=== PATIENT | male | born 1965 | race Caucasian/White ===

== ENCOUNTER 2017-11-21 20:45 | Observation (INO) | payer BC, OTHER ==
[~2017-11-21] VITALS: Ht 180.3 cm; Wt 85.3 kg
[~2017-11-21 20:45] MED LIST: TRAM50TA2 PO; TRM50T PO; ZOLP10TA PO
[2017-11-21] MEDS ORDERED: IBUPROFEN 800 MG (MOTRIN) TAB PO ONE (20:58)
[2017-11-21] MEDS ORDERED: NS IV 1000 ML 1,000 ML ONE (20:58)
[2017-11-21] MEDS ORDERED: NS IV 1000 ML 1,000 ML IV ONE (20:59)
[2017-11-21 21:06] LABS: BASOPHILS % (AUTO) 0 % (0-10); EOSINOPHILS % (AUTO) 0 % (0-10); HEMATOCRIT 41 % (40-54); LYMPHOCYTES # (AUTO) 0.7 X 10^3 (1.0-4.0); LYMPHOCYTES % (AUTO) 5 % (12-44); MEAN CORPUSCULAR HEMOGLOBIN 33 PG (25-34); MEAN CORPUSCULAR HGB CONC 34 G/DL (32-36); MEAN CORPUSCULAR VOLUME 96 FL (80-99); MEAN PLATELET VOLUME 8.7 FL (7.4-10.4); MONOCYTES # (AUTO) 0.8 X 10^3 (0.0-1.0); MONOCYTES % (AUTO) 5 % (0-12); NEUTROPHILS # (AUTO) 14.6 X 10^3 (1.8-7.8); NEUTROPHILS % (AUTO) 90 % (42-75); PLATELET COUNT 256 10^3/uL (130-400); RED BLOOD COUNT 4.26 10^6/uL (4.35-5.85); RED CELL DISTRIBUTION WIDTH 12.1 % (10.0-14.5); WHITE BLOOD COUNT 16.2 10^3/uL (4.3-11.0)
[2017-11-21 21:12] LABS: INR 0.9 (0.8-1.4); PROTHROMBIN TIME PATIENT 12.3 SEC (12.2-14.7)
--- NOTE | 2017-11-21 21:13 | ED Cough/URI ---
General Chief Complaint: Fever-Adult/Adol Stated Complaint: SOB Nursing Triage Note: PATIENT STATES THAT YESTERDAY HE STARTED HAVING FEVER AND CHILLS AND SHORTNESS OF BREATH. HE FEELS DEHYDRATED. HE IS NOT EATING. HE IS ABLE TO KEEP LIQUIDS DOWN. SORE THROAT STARTED THIS EVENING. HE HAS BODY ACHES AND SAYS IT IS "HURTING MY SCOLIOSIS." Source: patient Exam Limitations: no limitations History of Present Illness Date Seen by Provider: Nov 21, 2017 Time Seen by Provider: 21:11 Initial Comments To ER By his with reports of shortness of breath. He states that yesterday he began to feel somewhat poorly but symptoms were very vague. He didn't think much of it and went on about his day. Today at noon he had a rather abrupt onset of high fever, and severe body aches, some shortness of breath. He denies sneezing, denies cough. He does report a sore throat. is currently being treated for strep throat. He took Tylenol 2-3 hours before coming to the emergency room Timing/Duration: constant Severity/Quality: moderate Associated Symptoms: fever/chills, muscle aches, shortness of breath, sore throat Allergies and Home Medications Allergies Coded Allergies: No Known Drug Allergies (Unverified , 01/17/11) Constitutional: see HPI, chills EENTM: see HPI, throat pain Respiratory: see HPI, short of breath Cardiovascular: no symptoms reported, No chest pain Genitourinary: no symptoms reported Musculoskeletal: see HPI, back pain, muscle pain Skin: no symptoms reported Psychiatric/Neurological: See HPI, Headache Hematologic/Lymphatic: No Symptoms Reported Past Tqogkph-Xltqfu-Zohcef Hx Patient Social History Recent Foreign Travel: No Contact w/Someone Who Travel: No Recent Infectious Disease Expo: No Recent Hopitalizations: No Reproductive System Hx Reproductive Disorders: No Sexually Transmitted Disease: No Physical Exam Vital Signs Vital Signs - First Documented 11/21/17 20:59 Temp 103.5 Pulse 132 Resp 18 B/P (MAP) 142/115 (124) Pulse Ox 100 O2 Delivery Room Air Capillary Refill : Less Than 3 Seconds General Appearance: WD/WN, no apparent distress, other (heart rate 124 sinus, temperature 103.5. Hypertensive at 142/115.) Eyes: Bilateral Eye Normal Inspection, Bilateral Eye PERRL, Bilateral Eye EOMI HEENT: PERRL/EOMI, normal ENT inspection Neck: non-tender, full range of motion Respiratory: normal breath sounds, no respiratory distress, no accessory muscle use Cardiovascular: no murmur, tachycardia Gastrointestinal: normal bowel sounds, non tender, soft Extremities: normal range of motion, non-tender Neurologic/Psychiatric: alert, normal mood/affect, oriented x 3 Skin: normal color, warm/dry He does have a headache which would be expected with his fever of 103.5 he does not have nuchal rigidity or complaints of neck stiffness. He can flex his chin all the way to his chest without any neck pain Focused Exam Evaluation Lactate Level Laboratory Tests 11/21/17 21:05: Lactic Acid Level 2.22*H Lactic Acid Level Laboratory Tests Test 11/21/17 21:05 Lactic Acid Level 2.22 MMOL/L (0.50-2.00) *H Progress/Results/Core Measures Suspected Sepsis Recent Fever Within 48 Hours: Yes Infection Criteria Present: Suspected New Infection New/Unexplained Altered Menta: No Sepsis Screen: Possible Sepsis Risk Sepsis Diagnosis: SIRS Temperature:103.5 Pulse: 132 Respiratory Rate: 18 Laboratory Tests 11/21/17 20:55: White Blood Count 16.2H Blood Pressure 142 /115 Mean: 124 Laboratory Tests 11/21/17 21:05: Lactic Acid Level 2.22*H Laboratory Tests 11/21/17 20:55: Creatinine 0.96, INR Comment 0.9, Platelet Count 256, Total Bilirubin 0.5 Results/Orders Lab Results Laboratory Tests Test 11/21/17 20:55 11/21/17 21:05 11/21/17 21:15 11/21/17 21:46 Range/Units White Blood Count 16.2 H 4.3-11.0 10^3/uL Red Blood Count 4.26 L 4.35-5.85 10^6/uL Hemoglobin 14.0 13.3-17.7 G/DL Hematocrit 41 40-54 % Mean Corpuscular Volume 96 80-99 FL Mean Corpuscular Hemoglobin 33 25-34 PG Mean Corpuscular Hemoglobin Concent 34 32-36 G/DL Red Cell Distribution Width 12.1 10.0-14.5 % Platelet Count 256 130-400 10^3/uL Mean Platelet Volume 8.7 7.4-10.4 FL Neutrophils (%) (Auto) 90 H 42-75 % Lymphocytes (%) (Auto) 5 L 12-44 % Monocytes (%) (Auto) 5 0-12 % Eosinophils (%) (Auto) 0 0-10 % Basophils (%) (Auto) 0 0-10 % Neutrophils # (Auto) 14.6 H 1.8-7.8 X 10^3 Lymphocytes # (Auto) 0.7 L 1.0-4.0 X 10^3 Monocytes # (Auto) 0.8 0.0-1.0 X 10^3 Eosinophils # (Auto) 0.0 0.0-0.3 10^3/uL Basophils # (Auto) 0.0 0.0-0.1 10^3/uL Neutrophils % (Manual) 75 % Lymphocytes % (Manual) 9 % Monocytes % (Manual) 6 % Eosinophils % (Manual) 1 % Basophils % (Manual) 1 % Band Neutrophils 8 % Blood Morphology Comment NORMAL Prothrombin Time 12.3 12.2-14.7 SEC INR Comment 0.9 0.8-1.4 Activated Partial Thromboplast Time 28 24-35 SEC D-Dimer 0.27 0.00-0.49 UG/ML Sodium Level 135 135-145 MMOL/L Potassium Level 3.9 3.6-5.0 MMOL/L Chloride Level 99 98-107 MMOL/L Carbon Dioxide Level 21 21-32 MMOL/L Anion Gap 15 H 5-14 MMOL/L Blood Urea Nitrogen 16 7-18 MG/DL Creatinine 0.96 0.60-1.30 MG/DL Estimat Glomerular Filtration Rate > 60 BUN/Creatinine Ratio 17 Glucose Level 141 H 70-105 MG/DL Calcium Level 9.6 8.5-10.1 MG/DL Total Bilirubin 0.5 0.1-1.0 MG/DL Aspartate Amino Transf (AST/SGOT) 20 5-34 U/L Alanine Aminotransferase (ALT/SGPT) 20 0-55 U/L Alkaline Phosphatase 61 40-136 U/L Troponin I < 0.30 <0.30 NG/ML Total Protein 8.0 6.4-8.2 GM/DL Albumin 4.7 H 3.2-4.5 GM/DL Monoscreen NEGATIVE NEGATIVE Lactic Acid Level 2.22 *H 0.50-2.00 MMOL/L Urine Color YELLOW Urine Clarity CLEAR Urine pH 7 5-9 Urine Specific Palmer 1.005 L 1.016-1.022 Urine Protein NEGATIVE NEGATIVE Urine Glucose (UA) NEGATIVE NEGATIVE Urine Ketones 1+ H NEGATIVE Urine Nitrite NEGATIVE NEGATIVE Urine Bilirubin NEGATIVE NEGATIVE Urine Urobilinogen NORMAL NORMAL MG/DL Urine Leukocyte Esterase NEGATIVE NEGATIVE Urine RBC (Auto) NEGATIVE NEGATIVE Urine RBC NONE /HPF Urine WBC NONE /HPF Urine Squamous Epithelial Cells RARE /HPF Urine Crystals NONE /LPF Urine Bacteria NONE /HPF Urine Casts NONE /LPF Urine Mucus NEGATIVE /LPF Urine Culture Indicated NO Group A Streptococcus Screen NEGATIVE NEGATIVE Micro Results Microbiology 11/21/17 Influenza Types A,B Antigen (PERRY) - Final, Complete My Orders Orders - GUERDA STUBBS ENVELOPE FOLD OPERATOR Troponin I (11/21/17 21:09) Fibrin Degradation Products (11/21/17 21:09) Ekg Tracing (11/21/17 21:14) Rapid Strep A Screen (11/21/17 21:27) Monotest (11/21/17 21:27) Ns Iv 1000 Ml (Sodium Chloride 0.9%) (11/21/17 21:45) Medications Given in ED Current Medications Medications Dose Ordered Sig/Daniel Route Start Time Stop Time Status Last Admin Dose Admin Ibuprofen 800 mg STK-MED ONCE PO 11/21/17 20:58 11/21/17 21:02 DC 11/21/17 21:06 800 MG Sodium Chloride 1,000 ml @ 0 mls/hr Q0M ONCE IV 11/21/17 20:59 11/21/17 21:01 DC 11/21/17 21:06 0 MLS/HR Vital Signs/I&O Vital Sign - Last 12Hours 11/21/17 11/21/17 20:59 21:24 Temp 103.5 Pulse 132 Resp 18 B/P (MAP) 142/115 (124) Pulse Ox 100 100 O2 Delivery Room Air Room Air Capillary Refill : Less Than 3 Seconds Blood Pressure Mean: 124 Diagnostic Imaging Diagonstic Imaging: Xray Plain Films/CT/US/NM/MRI: chest Comments NAME: JESENIA MAGALLANES [facility] REC#: [id number] PT STATUS: REG ER : 1965 PHYSICIAN: TAMI CHANEL MD ADMIT DATE: 11/21/17/ER Draft Date of Exam:11/21/17 CHEST 1 VIEW, AP/PA ONLY EXAMINATION: Chest radiograph, portable AP view. DATE: 11/21/2017 at 2121 hours. INDICATION: 52-year-old male, fever and chills. Shortness of breath. COMPARISON: None. FINDINGS: Heart size and mediastinal contours are unremarkable. There is no identified pneumothorax. There is no large pleural effusion. There is no identified focal airspace consolidation. There is a midthoracic dextroscoliosis. IMPRESSION: 1. No identified acute cardiopulmonary abnormality. Dictated on workstation # [id number] Dict: 11/21/175 Trans: 11/21/172149 [facility] [id number] Interpreted by: FERNANDO HIDALGO MD Electronically signed by: Departure Communication (Admissions) Time/Spoke to Admitting Phy: 22:03 Communication I did discuss the case with Dr. Johnson who is on-call for [facility]. Discussed my concerns as the patient does meet sepsis criteria given the heart rate of 127, temperature 103.5, white count greater than 12,000 and lactic acid elevated at 2.22. While his symptoms most fitted with influenza his labs are a bit concerning. We would admit the patient, IV hydration, he received 2 L of normal saline in the emergency room, Tylenol and Motrin overnight for fever control, Zosyn and vancomycin for the sepsis criteria with unknown origin of fever and start him on Tamiflu given the symptoms consistent with flu. Dr. Johnson agrees with this plan and will see the patient in the morning. I did relay this plan to the patient and his both of whom are agreeable to admission and being seen in the morning for reevaluation with labs. The will go home and get the patient's evening medications and bring them back to him once he is admitted to his room upstairs. Impression Impression: Primary Impression: Influenza-like illness Additional Impression: Sepsis Disposition: ADMITTED INPATIENT Condition: Stable Admissions Decision to Admit Reason: Admit from ER (General) Decision to Admit/Date: Nov 21, 2017 Time/Decision to Admit Time: 22:05 Departure-Patient Inst. Referrals: [facility] (PCP/Family) Primary Care Physician GUERDA STUBBS APRN Nov 21, 2017 21:13
[2017-11-21 21:25] LABS: BILIRUBIN,URINE NEGATIVE (NEGATIVE); CLARITY,URINE CLEAR; COLOR,URINE YELLOW; GLUCOSE, URINE (UA) NEGATIVE (NEGATIVE); KETONES,URINE 1+ (NEGATIVE); LEUKOCYTE ESTERASE ,URINE NEGATIVE (NEGATIVE); NITRITE,URINE NEGATIVE (NEGATIVE); PH,URINE 7 (5-9); PROTEIN,URINE NEGATIVE (NEGATIVE); UROBILINOGEN,URINE NORMAL (NORMAL)
[2017-11-21 21:25] LABS: BAND NEUTROPHILS 8 %; BASOPHILS % (MANUAL) 1 %; EOSINOPHILS % (MANUAL) 1 %; LYMPHOCYTES % (MANUAL) 9 %; MONOCYTES % (MANUAL) 6 %; NEUTROPHILS % (MANUAL) 75 %
[2017-11-21 21:26] LABS: ALANINE AMINOTRANSFERASE 20 U/L (0-55); ALBUMIN 4.7 GM/DL (3.2-4.5); ALKALINE PHOSPHATASE 61 U/L (40-136); BILIRUBIN,TOTAL 0.5 MG/DL (0.1-1.0); BUN/CREATININE RATIO 17; CALCIUM 9.6 MG/DL (8.5-10.1); CARBON DIOXIDE 21 MMOL/L (21-32); CHLORIDE 99 MMOL/L (98-107); CREATININE SERUM 0.96 MG/DL (0.60-1.30); GFR ESTIMATED > 60; GLUCOSE 141 MG/DL (70-105); POTASSIUM 3.9 MMOL/L (3.6-5.0); RBC MORPH NORMAL; SODIUM 135 MMOL/L (135-145)
[2017-11-21 21:30] LABS: SQUAMOUS EPITHELIAL CELL,UR RARE /HPF
[2017-11-21] MEDS ORDERED: NS IV 1000 ML 1,000 ML IV SCH (21:45)
--- NOTE | 2017-11-21 21:50 | Diagnostic Imaging Report ---
EXAMINATION: Chest radiograph, portable AP view. DATE: 11/21/2017 at 2121 hours. INDICATION: 52-year-old male, fever and chills. Shortness of breath. COMPARISON: None. FINDINGS: Heart size and mediastinal contours are unremarkable. There is no identified pneumothorax. There is no large pleural effusion. There is no identified focal airspace consolidation. There is a midthoracic dextroscoliosis. IMPRESSION: 1. No identified acute cardiopulmonary abnormality. Dictated by: Dictated on workstation # [id number]
[2017-11-21] MEDS ORDERED: PIPERACILLIN SODIUM/TAZOBACTAM 4.5 GM in NS (IVPB) 100 ML IV ONE (22:15)
--- OUTSIDE RECORDS SUMMARY | 2017-11-21 22:18 | XMS REPORT | Continuity of Care Document ---
Author Author [facility] Address Unknown Phone Unavailable Allergies There is no data. Medications There is no data. Problems Date Dx Coded Attending Type Code Diagnosis Diagnosed By 03/04/2014 ALMA NDIAYE APRNA L 790.21 IMPAIRED FASTING GLUCOSE 03/04/2014 MADL SENIOR VISUAL DESIGNER, KAREY L 919.4 INSECT BITE NONVENOMOUS OF OTHER MULTIPLE AND UNSPECIFIED SITES WITHOUT INFECTION 03/04/2014 CLAUDIO NDIAYE APRNNYA L 790.21 IMPAIRED FASTING GLUCOSE 03/04/2014 MADL SENIOR VISUAL DESIGNER, KAREY L 919.4 INSECT BITE NONVENOMOUS OF OTHER MULTIPLE AND UNSPECIFIED SITES WITHOUT INFECTION 03/18/2014 ALMA NDIAYE APRNA L 272.1 PURE HYPERGLYCERIDEMIA Procedures Code [place] [address] ROUTINE VENIPUNCTURE 03/04/2014 20988 GLUCOSE HERIBERTO 2 HOUR 03/04/2014 26233 LYME EIA W/WEST BLOT 03/04/2014 84244 EHRLICHIA ANTIBODY 03/04/2014 97965 TULAREMIA ANTIBODY 03/04/2014 88626 OLMAN MT SPOT FEVER 03/04/2014 Results There is no data. Encounters ACCT No. Visit Date/Time Discharge Status Pt. Type Provider Facility Loc./Unit Complaint [id number] 03/18/2014 11:27:00 03/18/2014 23:59:59 CLS Outpatient KAREY NDIAYE APRN [id number] 03/04/2014 08:51:00 03/04/2014 23:59:59 CLS Outpatient KAREY NDIAYE APRN
--- OUTSIDE RECORDS SUMMARY | 2017-11-21 22:18 | XMS REPORT ---
Author Author JUAN DANIEL HERBERT [facility] Address [address] [place] [address] Care Team Providers Care Head Wrestling Coach Name Role Phone JUAN DANIEL HERBERT Unavailable PROBLEMS Type Condition ICD9-CM Code FPE75-DL Code Onset Dates Condition Status SNOMED Code Problem Hyperlipidemia, unspecified hyperlipidemia type E78.5 Active 17296870 Problem Other chronic pain G89.29 Active 23795591 Problem Primary insomnia F51.01 Active 5122033 Problem Infantile idiopathic scoliosis of thoracic region M41.04 Active 48649470 ALLERGIES No Information SOCIAL HISTORY Never Assessed PLAN OF CARE VITAL SIGNS MEDICATIONS Medication Instructions Dosage Frequency Start Date End Date Duration Status Tramadol HCl 50 mg Orally 3 times a day 2 tablet 8h Aug, 28 days Active RESULTS No Results PROCEDURES No Known procedures IMMUNIZATIONS No Known Immunizations MEDICAL (GENERAL) HISTORY Type Description Date Medical History allergic rhinitis Multiple pollens and danders. Has had allergy shots in the past Medical History Primary insomnia Medical History Infantile idiopathic scoliosis of thoracic region Surgical History deviated septum
--- OUTSIDE RECORDS SUMMARY | 2017-11-21 22:18 | XMS REPORT ---
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 Has had allergy shots in the past Medical History Primary insomnia Medical History Infantile idiopathic scoliosis of thoracic region Surgical History deviated septum
--- OUTSIDE RECORDS SUMMARY | 2017-11-21 22:18 | XMS REPORT ---
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 Unknown Non Drug Allergy Sep, Unknown SOCIAL HISTORY No smoking Hx information available PLAN OF CARE Activity Details Follow Up 3 Months Reason:pain mgmt VITAL SIGNS Height 71 in 2016-10-08 Weight 197.9 lbs 2016-10-08 Temperature 98.1 degrees Fahrenheit 2016-10-08 Heart Rate 84 bpm 2016-10-08 Respiratory Rate 18 2016-10-08 BMI 27.60 kg/m2 2016-10-08 Blood pressure systolic 126 mmHg 2016-10-08 Blood pressure diastolic 88 mmHg 2016-10-08 MEDICATIONS Medication Instructions Dosage Frequency Start Date End Date Duration Status Tramadol HCl 50 mg Orally 3 times a day 2 tablet 8h Aug, Oct, 28 days Active Ambien CR 12.5 MG Orally Once a day 1 tablet at bedtime as needed 24h Sep, Active RESULTS Name Result Date Reference Range CBC 2016-10-08 WBC 5.3 3.4-10.8 RBC 4.18 4.14-5.80 Hemoglobin 13.5 12.6-17.7 Hematocrit 40.1 37.5-51.0 MCV 96 79-97 MCH 32.3 26.6-33.0 MCHC 33.7 31.5-35.7 RDW 12.9 12.3-15.4 Platelets 297 150-379 Neutrophils 64 Lymphs 27 Monocytes 7 Eos 2 Basos 0 Neutrophils (Absolute) 3.3 1.4-7.0 Lymphs (Absolute) 1.4 0.7-3.1 Monocytes(Absolute) 0.4 0.1-0.9 Eos (Absolute) 0.1 0.0-0.4 Baso (Absolute) 0.0 0.0-0.2 Immature Granulocytes 0 Immature Grans (Abs) 0.0 0.0-0.1 LIPID PANEL 2016-10-08 Cholesterol, Total 273 100-199 Triglycerides 225 0-149 HDL Cholesterol 37 >39 VLDL Cholesterol Jacob 45 5-40 LDL Cholesterol Calc 191 0-99 Comment: CMP 2016-10-08 Glucose, Serum 122 65-99 BUN 12 6-24 Creatinine, Serum 0.80 0.76-1.27 eGFR If NonAfricn Am 104 >59 eGFR If Africn Am 120 >59 BUN/Creatinine Ratio 15 9-20 Sodium, Serum 141 134-144 Potassium, Serum 4.7 3.5-5.2 Chloride, Serum 100 96-106 Carbon Dioxide, Total 24 18-29 Calcium, Serum 9.8 8.7-10.2 Protein, Total, Serum 7.0 6.0-8.5 Albumin, Serum 4.6 3.5-5.5 Globulin, Total 2.4 1.5-4.5 A/G Ratio 1.9 1.1-2.5 Bilirubin, Total 0.3 0.0-1.2 Alkaline Phosphatase, S 59 39-117 AST (SGOT) 16 0-40 ALT (SGPT) 17 0-44 PROCEDURES Procedure Date Ordered Related Diagnosis Body Site LIPID PANEL Oct 08, 2016 COMPREHEN METABOLIC PANEL Oct 08, 2016 VENIPUNCT, ROUTINE* Oct 08, 2016 Office Visit, Est Pt., Level 3 Oct 08, 2016 IMMUNIZATIONS No Known Immunizations
--- OUTSIDE RECORDS SUMMARY | 2017-11-21 22:18 | XMS REPORT ---
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
--- OUTSIDE RECORDS SUMMARY | 2017-11-21 22:18 | XMS REPORT ---
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
--- OUTSIDE RECORDS SUMMARY | 2017-11-21 22:18 | XMS REPORT ---
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
--- OUTSIDE RECORDS SUMMARY | 2017-11-21 22:18 | XMS REPORT ---
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
--- OUTSIDE RECORDS SUMMARY | 2017-11-21 22:18 | XMS REPORT ---
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
--- OUTSIDE RECORDS SUMMARY | 2017-11-21 22:18 | XMS REPORT ---
Author Author JUAN DANIEL HERBERT 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 Unknown Non Drug Allergy Aug, Unknown SOCIAL HISTORY No smoking Hx information available PLAN OF CARE Activity Details Follow Up 4 Weeks Reason:pain mgmt VITAL SIGNS Height 71 in 2016-09-10 Weight 201.5 lbs 2016-09-10 Temperature 98.6 degrees Fahrenheit 2016-09-10 Heart Rate 80 bpm 2016-09-10 Respiratory Rate 18 2016-09-10 BMI 28.10 kg/m2 2016-09-10 Blood pressure systolic 116 mmHg 2016-09-10 Blood pressure diastolic 84 mmHg 2016-09-10 MEDICATIONS Unknown Medications RESULTS No Results PROCEDURES Procedure Date Ordered Related Diagnosis Body Site Office Visit, New Pt., Level 3 Sep 10, 2016 IMMUNIZATIONS No Known Immunizations
--- OUTSIDE RECORDS SUMMARY | 2017-11-21 22:18 | XMS REPORT ---
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
--- OUTSIDE RECORDS SUMMARY | 2017-11-21 22:18 | XMS REPORT ---
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 Has had allergy shots in the past Medical History Primary insomnia Medical History Infantile idiopathic scoliosis of thoracic region Surgical History deviated septum
--- OUTSIDE RECORDS SUMMARY | 2017-11-21 22:18 | XMS REPORT ---
Author Author JUAN DANIEL HERBERT Organization [facility] Address [address] [place] [address] Care Team Providers Care Trade Promotion Analyst Name Role Phone JUAN DANIEL HERBERT Unavailable PROBLEMS Type Condition ICD9-CM Code UYN20-[id number] Code Onset Dates Condition Status SNOMED Code Problem Hyperlipidemia, unspecified hyperlipidemia type E78.5 Active 22863694 Problem Other chronic pain G89.29 Active 31723805 Problem Primary insomnia F51.01 Active 5905055 Problem Infantile idiopathic scoliosis of thoracic region M41.04 Active 75875157 ALLERGIES No Known Allergies SOCIAL HISTORY Never Assessed PLAN OF CARE Activity Details Follow Up 3 Months Reason:chronic pain VITAL SIGNS Height 71 in 2017-02-17 Weight 192.1 lbs 2017-02-17 Temperature 98.8 degrees Fahrenheit 2017-02-17 Heart Rate 88 bpm 2017-02-17 Respiratory Rate 20 2017-02-17 BMI 26.79 kg/m2 2017-02-17 Blood pressure systolic 122 mmHg 2017-02-17 Blood pressure diastolic 88 mmHg 2017-02-17 MEDICATIONS Medication Instructions Dosage Frequency Start Date End Date Duration Status Lipitor 40 mg Orally Once a day 1 tablet 24h January, 90 days Active Ambien CR 12.5 MG Orally Once a day 1 tablet at bedtime as needed 24h Sep, 30 days Active Tecopa-3 1000 MG Orally Once a day 3 capsules 24h Sep, Active Tramadol HCl 50 mg Orally 3 [...]
[2017-11-21 22:40] VITALS: BP 132/58
[2017-11-21] MEDS ORDERED: VANCOMYCIN INJECTION 1,000 MG in NS (IVPB) 250 ML IV SCH (23:30)
[2017-11-21] MEDS ORDERED: ONDANSETRON 4 MG/2 ML (SDV) Z0FRAN IV PRN (23:30)
[2017-11-21] MEDS ORDERED: NS IV PRN (23:30)
[2017-11-21] MEDS: NS IV 1000 ML 1,000 ML IV SCH ×2 (23:30→23:56)
[2017-11-21] MEDS: ACETAMINOPHEN 500 MG TAB (TYLENOL) PO PRN (23:55)
[2017-11-22] MEDS: NS IV 1000 ML 1,000 ML IV SCH ×8 (00:01→20:18)
[2017-11-22] MEDS: PIPERACILLIN SODIUM/TAZOBACTAM 4.5 GM in NS (IVPB) 100 ML IV SCH ×3 (01:48→17:32)
[2017-11-22] MEDS: IBUPROFEN 800 MG (MOTRIN) TAB PO PRN ×2 (03:49→13:29)
[2017-11-22 04:00] VITALS: BP 127/73
[2017-11-22 05:50] LABS: BASOPHILS % (AUTO) 0 % (0-10); EOSINOPHILS % (AUTO) 0 % (0-10); HEMATOCRIT 36 % (40-54); HEMOGLOBIN 12.2 G/DL (13.3-17.7); LYMPHOCYTES # (AUTO) 0.5 X 10^3 (1.0-4.0); LYMPHOCYTES % (AUTO) 5 % (12-44); MEAN CORPUSCULAR HEMOGLOBIN 33 PG (25-34); MEAN CORPUSCULAR HGB CONC 34 G/DL (32-36); MEAN CORPUSCULAR VOLUME 97 FL (80-99); MEAN PLATELET VOLUME 8.7 FL (7.4-10.4); MONOCYTES # (AUTO) 0.4 X 10^3 (0.0-1.0); MONOCYTES % (AUTO) 3 % (0-12); NEUTROPHILS # (AUTO) 10.6 X 10^3 (1.8-7.8); NEUTROPHILS % (AUTO) 92 % (42-75); PLATELET COUNT 214 10^3/uL (130-400); RED BLOOD COUNT 3.73 10^6/uL (4.35-5.85); RED CELL DISTRIBUTION WIDTH 12.2 % (10.0-14.5); WHITE BLOOD COUNT 11.5 10^3/uL (4.3-11.0)
[2017-11-22 06:07] LABS: ALANINE AMINOTRANSFERASE 15 U/L (0-55); ALBUMIN 3.5 GM/DL (3.2-4.5); ALKALINE PHOSPHATASE 45 U/L (40-136); BILIRUBIN,TOTAL 0.4 MG/DL (0.1-1.0); BUN/CREATININE RATIO 17; CALCIUM 8.2 MG/DL (8.5-10.1); CARBON DIOXIDE 19 MMOL/L (21-32); CHLORIDE 111 MMOL/L (98-107); CREATININE SERUM 0.81 MG/DL (0.60-1.30); GFR ESTIMATED > 60; GLUCOSE 157 MG/DL (70-105); SODIUM 141 MMOL/L (135-145); TOTAL PROTEIN 5.9 GM/DL (6.4-8.2)
[2017-11-22 08:00] VITALS: BP 127/72
--- NOTE | 2017-11-22 08:02 | History & Physicial (CHS) ---
HPI History of Present Illness: 52-year-old male presents to [facility] emergency department during the evening of November 21, 2017 with a cough. He also had a vague discomfort in his chest. He reports he wasn't sure whether he was having something to do with his lungs or perhaps even his heart. He is normally in pretty good health as he states. He denied any significant shortness of breath. He hasn't checked his fever but it is quite possible low-grade temperature. Source: patient Exam Limitations: clinical condition Date seen by provider: Nov 22, 2017 Time Seen by Provider: 07:20 Attending Physician Raffi Go MD [place] Consult Date of Admission Nov 21, 2017 at 22:14 Home Medications Home Medications Reviewed patient Home Medication Reconciliation Form Allergies Coded Allergies: No Known Drug Allergies (Unverified , 01/17/11) RUT-Tyiwxz-Syrqvd Hx Patient Social History Marrital Status: Alcohol Use: Rarely Uses Recreational Drug Use: No Smoking Status: Never a Smoker 2nd Hand Smoke Exposure: No Recent Foreign Travel: No Contact w/other who traveled: No Recent Hopitalizations: No Recent Infectious Disease Expo: No Physical Abuse Screen: No Sexual Abuse: No Family Medical History Family History: Congenital heart disease 19 FATHER FH: prostate cancer 19 FATHER Review of Systems (CHC) Constitutional: see HPI Reviewed Test Results Reviewed Test Results Lab Laboratory Tests Test 11/21/17 20:55 11/21/17 21:05 11/21/17 21:15 11/21/17 21:46 Range/Units White Blood Count 16.2 H 4.3-11.0 10^3/uL Red Blood Count 4.26 L 4.35-5.85 10^6/uL Hemoglobin 14.0 13.3-17.7 G/DL Hematocrit 41 40-54 % Mean Corpuscular Volume 96 80-99 FL Mean Corpuscular Hemoglobin 33 25-34 PG Mean Corpuscular Hemoglobin Concent 34 32-36 G/DL Red Cell Distribution Width 12.1 10.0-14.5 % Platelet Count 256 130-400 10^3/uL Mean Platelet Volume 8.7 7.4-10.4 FL Neutrophils (%) (Auto) 90 H 42-75 % Lymphocytes (%) (Auto) 5 L 12-44 % Monocytes (%) (Auto) 5 0-12 % Eosinophils (%) (Auto) 0 0-10 % Basophils (%) (Auto) 0 0-10 % Neutrophils # (Auto) 14.6 H 1.8-7.8 X 10^3 Lymphocytes # (Auto) 0.7 L 1.0-4.0 X 10^3 Monocytes # (Auto) 0.8 0.0-1.0 X 10^3 Eosinophils # (Auto) 0.0 0.0-0.3 10^3/uL Basophils # (Auto) 0.0 0.0-0.1 10^3/uL Neutrophils % (Manual) 75 % Lymphocytes % (Manual) 9 % Monocytes % (Manual) 6 % Eosinophils % (Manual) 1 % Basophils % (Manual) 1 % Band Neutrophils 8 % Blood Morphology Comment NORMAL Prothrombin Time 12.3 12.2-14.7 SEC INR Comment 0.9 0.8-1.4 Activated Partial Thromboplast Time 28 24-35 SEC D-Dimer 0.27 0.00-0.49 UG/ML Sodium Level 135 135-145 MMOL/L Potassium Level 3.9 3.6-5.0 MMOL/L Chloride Level 99 98-107 MMOL/L Carbon Dioxide Level 21 21-32 MMOL/L Anion Gap 15 H 5-14 MMOL/L Blood Urea Nitrogen 16 7-18 MG/DL Creatinine 0.96 0.60-1.30 MG/DL Estimat Glomerular Filtration Rate > 60 BUN/Creatinine Ratio 17 Glucose Level 141 H 70-105 MG/DL Calcium Level 9.6 8.5-10.1 MG/DL Total Bilirubin 0.5 0.1-1.0 MG/DL Aspartate Amino Transf (AST/SGOT) 20 5-34 U/L Alanine Aminotransferase (ALT/SGPT) 20 0-55 U/L Alkaline Phosphatase 61 40-136 U/L Troponin I < 0.30 <0.30 NG/ML Total Protein 8.0 6.4-8.2 GM/DL Albumin 4.7 H 3.2-4.5 GM/DL Monoscreen NEGATIVE NEGATIVE Lactic Acid Level 2.22 *H 0.50-2.00 MMOL/L Urine Color YELLOW Urine Clarity CLEAR Urine pH 7 5-9 Urine Specific Ewing 1.005 L 1.016-1.022 Urine Protein NEGATIVE NEGATIVE Urine Glucose (UA) NEGATIVE NEGATIVE Urine Ketones 1+ H NEGATIVE Urine Nitrite NEGATIVE NEGATIVE Urine Bilirubin NEGATIVE NEGATIVE Urine Urobilinogen NORMAL NORMAL MG/DL Urine Leukocyte Esterase NEGATIVE NEGATIVE Urine RBC (Auto) NEGATIVE NEGATIVE Urine RBC NONE /HPF Urine WBC NONE /HPF Urine Squamous Epithelial Cells RARE /HPF Urine Crystals NONE /LPF Urine Bacteria NONE /HPF Urine Casts NONE /LPF Urine Mucus NEGATIVE /LPF Urine Culture Indicated NO Group A Streptococcus Screen NEGATIVE NEGATIVE Test 11/21/17 23:05 11/22/17 05:13 Range/Units Lactic Acid Level 1.44 0.50-2.00 MMOL/L White Blood Count 11.5 H 4.3-11.0 10^3/uL Red Blood Count 3.73 L 4.35-5.85 10^6/uL Hemoglobin 12.2 L 13.3-17.7 G/DL Hematocrit 36 L 40-54 % Mean Corpuscular Volume 97 80-99 FL Mean Corpuscular Hemoglobin 33 25-34 PG Mean Corpuscular Hemoglobin Concent 34 32-36 G/DL Red Cell Distribution Width 12.2 10.0-14.5 % Platelet Count 214 130-400 10^3/uL Mean Platelet Volume 8.7 7.4-10.4 FL Neutrophils (%) (Auto) 92 H 42-75 % Lymphocytes (%) (Auto) 5 L 12-44 % Monocytes (%) (Auto) 3 0-12 % Eosinophils (%) (Auto) 0 0-10 % Basophils (%) (Auto) 0 0-10 % Neutrophils # (Auto) 10.6 H 1.8-7.8 X 10^3 Lymphocytes # (Auto) 0.5 L 1.0-4.0 X 10^3 Monocytes # (Auto) 0.4 0.0-1.0 X 10^3 Eosinophils # (Auto) 0.0 0.0-0.3 10^3/uL Basophils # (Auto) 0.0 0.0-0.1 10^3/uL Sodium Level 141 135-145 MMOL/L Potassium Level 4.0 3.6-5.0 MMOL/L Chloride Level 111 #H 98-107 MMOL/L Carbon Dioxide Level 19 L 21-32 MMOL/L Anion Gap 11 5-14 MMOL/L Blood Urea Nitrogen 14 7-18 MG/DL Creatinine 0.81 0.60-1.30 MG/DL Estimat Glomerular Filtration Rate > 60 BUN/Creatinine Ratio 17 Glucose Level 157 H 70-105 MG/DL Calcium Level 8.2 L 8.5-10.1 MG/DL Total Bilirubin 0.4 0.1-1.0 MG/DL Aspartate Amino Transf (AST/SGOT) 15 5-34 U/L Alanine Aminotransferase (ALT/SGPT) 15 0-55 U/L Alkaline Phosphatase 45 40-136 U/L Total Protein 5.9 L 6.4-8.2 GM/DL Albumin 3.5 3.2-4.5 GM/DL Radiology NAME: JESENIA MAGALLANES [facility] REC#: [id number] PT STATUS: ADM Sigifredo : 1965 PHYSICIAN: TAMI CHANEL MD ADMIT DATE: 11/21/17 Signed Date of Exam: 11/21/17 CHEST 1 VIEW, AP/PA ONLY EXAMINATION: Chest radiograph, portable AP view. DATE: 11/21/2017 at 2121 hours. INDICATION: 52-year-old male, fever and chills. Shortness of breath. COMPARISON: None. FINDINGS: Heart size and mediastinal contours are unremarkable. There is no identified pneumothorax. There is no large pleural effusion. There is no identified focal airspace consolidation. There is a midthoracic dextroscoliosis. IMPRESSION: 1. No identified acute cardiopulmonary abnormality. Dictated by: Dictated on workstation # [id number] Dict: 11/21/[id number] Trans: 11/21/172213 Interpreted by: FERNANDO HIDALGO MD Electronically signed by: FERNANDO HIDALGO MD 11/21/172213 Physical Exam-(CHC) Physical Exam Vital Signs VS - Last 72 Hours, by Label 11/21/17 11/21/17 11/21/17 11/21/17 20:59 21:24 22:08 22:32 Temp 103.5 103.5 103.5 Pulse 132 121 121 Resp 18 B/P (MAP) 142/115 (124) 142/115 142/115 (124) Pulse Ox 100 100 100 100 O2 Delivery Room Air Room Air Room Air 11/21/17 11/21/17 11/21/17 11/22/17 22:40 22:40 23:31 01:00 Temp 100.5 Pulse 120 126 120 Resp 20 B/P (MAP) 132/58 (82) Pulse Ox 94 O2 Delivery Room Air Room Air 11/22/17 11/22/17 11/22/17 03:49 04:00 04:19 Temp 100.2 100.2 100.1 Pulse 106 Resp 18 B/P (MAP) 127/73 (91) Pulse Ox 98 O2 Delivery Room Air Capillary Refill : Less Than 3 Seconds General Appearance: no apparent distress Eyes: Bilateral Eye Normal Inspection HEENT: pharynx normal Neck: supple Respiratory: lungs clear, normal breath sounds, no respiratory distress Cardiovascular: regular rate, rhythm Gastrointestinal: soft Rectal: deferred Back: normal inspection Extremities: non-tender Clinical Quality Measures DVT/VTE Risk/Contraindication: Risk Factor Score Per Nursin RFS Level Per Nursing on Admit: 4+=Very High Assessment/Plan Assessment/Plan Admission Dx 1. Sepsis by criteria 2. Influenza-like illness--negative nasal aspirate for influenza A or B Admission Status: Observation Plan 1. Sepsis by criteria -Patient has blood cultures pending -IV fluids -He has been started on Zosyn and vancomycin in the ED emergency department 2. Influenza-like illness--negative nasal aspirate for influenza A or B - he was started on Tamiflu in the emergency department RAFFI GO MD Nov 22, 2017 08:02
[2017-11-22] MEDS: VANCOMYCIN 1500 MG/NS 500 ML IVPB IV SCH ×4 (08:11→21:37)
[2017-11-22] MEDS ORDERED: INFLUENZA TRIvalent 2017-2018 0.5 ML/45 MCG SYR IM ONE (09:00)
[2017-11-22] MEDS: OSELTAMIVIR 75 MG (TAMIFLU) BOX OF 10 PO SCH ×2 (09:21→20:18)
[2017-11-22 12:00] VITALS: BP 119/54
[2017-11-22] MEDS: ACETAMINOPHEN 500 MG TAB (TYLENOL) PO PRN ×2 (13:29→19:03)
[2017-11-22 13:43] VITALS: BP 134/78
[2017-11-22 20:00] VITALS: BP 147/85
[2017-11-23 00:55] VITALS: BP 141/84
[2017-11-23] MEDS: ACETAMINOPHEN 500 MG TAB (TYLENOL) PO PRN (01:35)
[2017-11-23] MEDS: PIPERACILLIN SODIUM/TAZOBACTAM 4.5 GM in NS (IVPB) 100 ML IV SCH ×2 (01:35→09:24)
[2017-11-23] MEDS: NS IV 1000 ML 1,000 ML IV SCH ×3 (02:45→14:06)
[2017-11-23 04:00] VITALS: BP 140/84
[2017-11-23] MEDS: IBUPROFEN 800 MG (MOTRIN) TAB PO PRN (06:55)
[2017-11-23 06:57] LABS: BASOPHILS % (AUTO) 0 % (0-10); EOSINOPHILS # (AUTO) 0.1 10^3/uL (0.0-0.3); EOSINOPHILS % (AUTO) 1 % (0-10); HEMATOCRIT 33 % (40-54); HEMOGLOBIN 11.3 G/DL (13.3-17.7); LYMPHOCYTES # (AUTO) 0.9 X 10^3 (1.0-4.0); LYMPHOCYTES % (AUTO) 10 % (12-44); MEAN CORPUSCULAR HEMOGLOBIN 33 PG (25-34); MEAN CORPUSCULAR HGB CONC 34 G/DL (32-36); MEAN CORPUSCULAR VOLUME 97 FL (80-99); MEAN PLATELET VOLUME 8.4 FL (7.4-10.4); MONOCYTES # (AUTO) 0.7 X 10^3 (0.0-1.0); MONOCYTES % (AUTO) 7 % (0-12); NEUTROPHILS # (AUTO) 7.6 X 10^3 (1.8-7.8); NEUTROPHILS % (AUTO) 82 % (42-75); PLATELET COUNT 182 10^3/uL (130-400); RED BLOOD COUNT 3.42 10^6/uL (4.35-5.85); RED CELL DISTRIBUTION WIDTH 12.1 % (10.0-14.5); WHITE BLOOD COUNT 9.2 10^3/uL (4.3-11.0)
[2017-11-23 08:00] VITALS: BP 129/80
[2017-11-23] MEDS: OSELTAMIVIR 75 MG (TAMIFLU) BOX OF 10 PO SCH (08:09)
[2017-11-23] MEDS: VANCOMYCIN 1500 MG/NS 500 ML IVPB IV SCH ×2 (08:10)
--- NOTE | 2017-11-23 08:22 | Progress Note (SOAP) ---
Subjective Subjective/Events-last exam Patient does not have any major concerns today. He reports he still has an occasional headache and it primarily in the back of his neck. He is able to move his neck completely however. He still is spiking temperatures off and on. His intake has improved. Review of Systems Date Seen by Provider: Nov 23, 2017 Time Seen by Provider: 07:40 Objective Exam Last Set of Vital Signs Vital Signs Date Time Temp Pulse Resp B/P (MAP) Pulse Ox O2 Delivery O2 Flow Rate FiO2 11/23/17 07:00 83 11/23/17 06:55 99.6 11/23/17 04:00 18 140/84 (102) 94 Room Air Capillary Refill : Less Than 3 Seconds I&O Intake and Output 11/23/17 00:00 Intake Total 6567.5 ml Output Total 2370 ml Balance 4197.5 ml Intake Oral 1860 ml IV Total 4707.5 ml Output Urine Total 2370 ml # Voids 2 # Bowel Movements 1 General: No Acute Distress Neck: Supple, Other (Full range of motion) Lungs: Clear to Auscultation Heart: Regular Rate Abdomen: Soft Skin: No Breakdown, No Significant Lesion Neuro: Normal Speech Results/Procedures Lab Laboratory Tests 11/23/17 06:45: White Blood Count 9.2, Red Blood Count 3.42L, Hemoglobin 11.3L, Hematocrit 33L, Mean Corpuscular Volume 97, Mean Corpuscular Hemoglobin 33, Mean Corpuscular Hemoglobin Concent 34, Red Cell Distribution Width 12.1, Platelet Count 182, Mean Platelet Volume 8.4, Neutrophils (%) (Auto) 82H, Lymphocytes (%) (Auto) 10L , Monocytes (%) (Auto) 7, Eosinophils (%) (Auto) 1, Basophils (%) (Auto) 0, Neutrophils # (Auto) 7.6, Lymphocytes # (Auto) 0.9L, Monocytes # (Auto) 0.7, Eosinophils # (Auto) 0.1, Basophils # (Auto) 0.0 Microbiology 11/21/17 Blood Culture - Preliminary, Resulted No growth 11/21/17 Throat Culture - Preliminary, Resulted Streptococcus pyogenes Grp A Radiology NAME: JESENIA MAGALLANES [facility] REC#: [id number] PT STATUS: ADM Sigifredo : 1965 PHYSICIAN: TAMI CHANEL MD ADMIT DATE: 11/21/17 Signed Date of Exam: 11/21/17 CHEST 1 VIEW, AP/PA ONLY EXAMINATION: Chest radiograph, portable AP view. DATE: 11/21/2017 at 2121 hours. INDICATION: 52-year-old male, fever and chills. Shortness of breath. COMPARISON: None. FINDINGS: Heart size and mediastinal contours are unremarkable. There is no identified pneumothorax. There is no large pleural effusion. There is no identified focal airspace consolidation. There is a midthoracic dextroscoliosis. IMPRESSION: 1. No identified acute cardiopulmonary abnormality. Dictated by: Dictated on workstation # [id number] Dict: 11/21/[id number] Trans: 11/21/172213 Interpreted by: FERNANDO HIDALGO MD Electronically signed by: FERNANDO HIDALGO MD 11/21/172213 Assessment/Plan Assessment/Plan Admission Status: Observation Plan 1. Sepsis by criteria -Patient has blood cultures pending -IV fluids -He has been started on Zosyn and vancomycin in the ED emergency department 11/23 -It appears that his white blood cell count is now normalized at 9.2. He is still however having temperature with MAXIMUM TEMPERATURE of 101 -Today is day number 2 of Zosyn and vancomycin -Blood cultures thus far are no growth -Also noted is a few colonies of group A strep by throat culture. His initial strep screen was negative -I suspect he will be dismissed to home tomorrow on strep coverage provided he is afebrile and blood culture final is no growth 2. Influenza-like illness--negative nasal aspirate for influenza A or B - he was started on Tamiflu in the emergency department 11/23 -He continues on Tamiflu Clinical Quality Measures DVT/VTE Risk/Contraindication: Risk Factor Score Per Nursin RFS Level Per Nursing on Admit: 4+=Very High ARIANA GO MD Nov 23, 2017 08:22
[2017-11-23 12:00] VITALS: BP 144/88
[2017-11-23] MEDS ORDERED: ZOLP12.546 PO (13:05)
[2017-11-23] MEDS ORDERED: TURM538C PO (13:21)
[2017-11-23] MEDS ORDERED: PREN-8 PO (13:21)
[2017-11-23] MEDS ORDERED: UBID200C16 PO (13:21)
[2017-11-23] MEDS ORDERED: OMEG-109 PO (13:21)
[2017-11-23] MEDS ORDERED: DIPH25TA31 PO (13:21)
[2017-11-23] MEDS ORDERED: ASCO-262 PO (13:21)
[2017-11-23] MEDS ORDERED: AMOX875T2 PO (14:19)
[2017-11-23 14:40] VITALS: BP 144/88
[2017-11-24] MEDS ORDERED: TROUGH ORDER-PHARMACY XX NR (08:00)
== END 2017-11-23 14:16 | disposition home or self-care (01) ==
LOC: EDUNIT# 20:45 → ER 20:47 → 4TH 22:14 → UNDOADMOB 22:14 → 4TH 22:40 → UNDODISOB 11-23 14:40
PROVIDERS: ADMIT Family Medicine; ATTEND Family Medicine
DX: A41.9 Sepsis, unspecified organism (principal); J11.1 Influenza due to unidentified influenza virus with other respiratory manifestations
CPT/HCPCS: 36415; 71045; 80053; 81000; 83605; 84484; 85007; 85025; 85027; 85379; 85610; 85730; 86308; 87040; 87430; 87804; 93005; 96361; 96374

== ENCOUNTER 2019-12-27 19:24 | Emergency (ER) | payer SELFPAY ==
[~2019-12-27] VITALS: Ht 180 cm; Wt 86.0 kg
[~2019-12-27 19:24] MED LIST changes: +AMOX875T2 PO; +ASCO-262 PO; +DIPH25TA31 PO; +OMEG-109 PO; +PREN-8 PO; -TRAM50TA2 PO; +TURM538C PO; +UBID200C16 PO; +ZOLP12.546 PO
[2019-12-27 19:29] VITALS: BP 139/81
[2019-12-27] MEDS ORDERED: LIDOCAINE/EPI 2% 1:100,00 (XYLOCAINE) 20 ML VIAL ONE (19:39)
[2019-12-27] MEDS ORDERED: LIDOCAINE/EPI 1%-1:100,000 (XYLOCAINE) 20ML INJ ONE (19:45)
[2019-12-27] MEDS ORDERED: TETANUS,DIPTH,PERTUSS P/F (BOOSTRIX) 0.5 ML VIAL IM ONE (19:45)
[2019-12-27] MEDS ORDERED: CEPH500T PO (20:14)
--- NOTE | 2019-12-27 20:15 | ED Integumentary General ---
General Chief Complaint: Laceration Stated Complaint: HEAD LACERATION Nursing Triage Note: PT STRUCK THE L SIDE OF HIS MU-ISM JUST SUPERIOR TO THE EYEBROW, BLEEDING IS NOT CONTROLLED, PT HOLDING T SHIRT IN PLACE. NOTED 2-2.5 CM LACERATION, WELL APPROXIMATED History of Present Illness Date Seen by Provider: Dec 27, 2019 Time Seen by Provider: 19:35 Initial Comments 54-year-old male was using a drill for home improvement, it bounced off a surface and hit him in the left forehead. Unsure of his last tetanus injection. No other injuries, headache, vision changes or pain. Timing/Duration: just prior to arrival Location: face (left frontal) Associated Symptoms: denies symptoms Allergies and Home Medications Allergies Coded Allergies: No Known Drug Allergies (Unverified , 01/17/11) Home Medications Amoxicillin 875 Mg Tablet, 875 MG PO BID Prescribed by: LINNEA MEYER on 11/23/17 1419 Ascorbate Calcium 500 Mg Tablet, 500 MG PO BID, (Reported) Cephalexin 500 Mg Tablet, 500 MG PO TID Prescribed by: NEHEMIAH FISHER on 12/27/192013 Diphenhydramine HCl 25 Mg Tablet, 50 MG PO TID, (Reported) Mcgregor-3 Fatty Acids/Fish Oil 1 Each Capsule, 1,200 MG PO DAILY, (Reported) Vit W-Ca,Fe,FA(<1 mg) 1 Each Tablet, 1 TAB PO DAILY, (Reported) Tramadol HCl 50 Mg Tablet, 100 MG PO TID, (Reported) TAKES 2 (50 MG) TABLETS Turmeric Root Extract 538 Mg Capsule, 538 MG PO BID, (Reported) Ubidecarenone 200 Mg Capsule, 200 MG PO BID, (Reported) Zolpidem Tartrate 12.5 Mg Tab.mphase, 12.5 MG PO HS, (Reported) Patient Home Medication List Home Medication List Reviewed: Yes Review of Systems Review of Systems Constitutional: no symptoms reported, see HPI Skin: see HPI, other (2.5 cm laceration to left forehead) All Other Systems Reviewed Negative Unless Noted: Yes Past Agkulzi-Rfiyyw-Iahvrw Hx Past Med/Social Hx: Reviewed Nursing Past Med/Soc Hx Patient Social History Alcohol Use: Denies Use Number of Drinks Today: AA Alcohol Beverage of Choice: Beer Recreational Drug Use: No Smoking Status: Never a Smoker 2nd Hand Smoke Exposure: No Recent Foreign Travel: No Contact w/Someone Who Travel: No Recent Infectious Disease Expo: No Recent Hopitalizations: No Physical Abuse: No Sexual Abuse: No Mistreated: No Fear: No Immunizations Up To Date Tetanus Booster (TDap): Unknown PED Vaccines UTD: Yes Seasonal Allergies Seasonal Allergies: Yes Past Medical History Surgeries: No Respiratory: No (DEVIATED SEPTUM REPAIR 20YRS AGO) Cardiac: Yes Neurological: No Reproductive Disorders: No Sexually Transmitted Disease: No Genitourinary: No Gastrointestinal: No Musculoskeletal: Yes Scoliosis Endocrine: No HEENT: No Cancer: No Psychosocial: No Integumentary: No Blood Disorders: No Family Medical History Congenital heart disease 19 FATHER FH: prostate cancer 19 FATHER Physical Exam Vital Signs Vital Signs - First Documented 12/27/19 19:29 Temp 36.7 Pulse 71 Resp 18 B/P (MAP) 139/81 (100) Pulse Ox 98 O2 Delivery Room Air Capillary Refill : Less Than 3 Seconds General Appearance: WD/WN, no apparent distress HEENT: PERRL/EOMI, normal ENT inspection, TMs normal, pharynx normal, other (2.5 cm laceration with active bleeding to left forehead) Neck: non-tender, full range of motion, supple, normal inspection Cardiovascular: normal peripheral pulses, regular rate, rhythm Respiratory: chest non-tender, lungs clear Gastrointestinal: normal bowel sounds, non tender, soft Neurologic/Psychiatric: no motor/sensory deficits, alert, normal mood/affect, oriented x 3 Skin: normal color, warm/dry Skin Problem Location: face (left forehead) Procedures/Interventions Wound Location: Face (left frontal) Wound Length (cm): 2.5 Wound's Depth, Shape: superficial Wound Explored: clean Irrigated w/ Saline (ccs): 500 Betadine Prep?: Yes Anesthesia: 1% Lidocaine Volume Anesthetic (ccs): 6 Suture: Ethlion Suture Size: 5-0 Number of Sutures: 4 Sterile Dressing Applied?: Yes Active bleeding with not controlled from the wound initially, pressure was applied and ice but with continued bleeding. Silver nitrate was used, pressure applied and bleeding stopped. Wound well approximated with simple sutures. Sterile bulky dressing applied. Progress/Results/Core Measures Results/Orders My Orders Orders - NEHEMIAH FISHERP Dipht,Pertuss(Acell),Tet Adult (Boostrix (12/27/19 19:45) Lidocaine/Epi 2% 1:100,000 (Xylocaine/Ep (12/27/19 19:39) Medications Given in ED Current Medications Medications Dose Ordered Sig/Daniel Route Start Time Stop Time Status Last Admin Dose Admin Diphtheria/ Tetanus/Acell Pertussis 0.5 ml ONCE ONCE IM 12/27/19 19:45 12/27/19 19:46 DC 12/27/19 20:02 0.5 ML Lidocaine/ Epinephrine 20 ml STK-MED ONCE .ROUTE 12/27/19 19:39 12/27/19 19:45 DC 12/27/19 20:04 20 ML Vital Signs/I&O 12/27/19 19:29 Temp 36.7 Pulse 71 Resp 18 B/P (MAP) 139/81 (100) Pulse Ox 98 O2 Delivery Room Air Blood Pressure Mean: 100 Departure Impression Primary Impression: Laceration of forehead Qualified Codes: S01.81XA - Laceration without foreign body of other part of head, initial encounter Disposition: HOME, SELF-CARE Condition: Improved Departure-Patient Inst. Decision time for Depature: 20:10 [facility]errals: [facility] [place] Primary Care Physician Patient Instructions: Laceration Repair With Stitches (DC) Add. Discharge Instructions: Keep wound clean and dry, you may shower but do not 18 water directly at the left-sided forehead. Do not submerge the wound in standing water: Bathtub, hot tub, swimming pool, etc. You may alternate between Tylenol 650 mg and ibuprofen 6 every 4 hours for pain. Take antibiotics as prescribed. Follow-up with your primary care provider or return to emergency department in approximately 5 days to have sutures removed. Watch for signs of infection: Discolored drainage, fever greater than 101, redness or swelling Return to the emergency department for new, urgent health care needs. All discharge instructions reviewed with patient and/or family. Voiced understanding. Scripts Cephalexin (Cephalexin) 500 Mg Tablet 500 MG PO TID, #15 TAB 0 Refills Prov: NEHEMIAH FISHER 12/27/19 NEHEMIAH FISHER Dec 27, 2019 20:15
== END 2019-12-27 20:20 | disposition home or self-care (01) ==
LOC: EDUNIT# 19:24 → ER 19:27
DX: S01.81XA Laceration without foreign body of other part of head, initial encounter (principal); M41.9 Scoliosis, unspecified; W22.8XXA Striking against or struck by other objects, initial encounter; Z23 Encounter for immunization
CPT/HCPCS: 12051; 90715

== ENCOUNTER → 2020-11-15 | Outpatient (CLI) | payer OTHER ==
[~2020-11-15] MED LIST changes: +CEPH500T PO; +NF-ZOL12.5 PO; -ZOLP12.546 PO
--- NOTE | 2020-11-15 19:49 | Diagnostic Imaging Report ---
INDICATION: History of scoliosis. COMPARISON: None. EXAMINATION: Multiple radiographic views of the thoracic and lumbar spine were obtained. Single frontal view of the pelvis and femurs was also provided. FINDINGS: There is moderate S-shaped scoliotic deformity of the thoracolumbar spine. There is moderate dextroscoliotic deformity of the thoracic spine epicentered at the T8-T9 level and measures approximately 40 degrees. Mild levoscoliotic deformity is also noted involving the lumbar spine epicentered at the L2 level and measures approximately 29 degrees. No segmentation or fusion anomaly is identified. Pelvis is intact. SI joints are symmetric. Pubic symphysis is within normal limits. No acute osseous abnormality is seen. No unexpected radiopaque foreign body is identified. IMPRESSION: Moderate S-shaped scoliotic deformity of the thoracolumbar spine, as described above. Dictated by: Dictated on workstation # [id number]
== END ==
LOC: RAD 19:15
PROVIDERS: ATTEND Nurse Practitioner
DX: M41.34 Thoracogenic scoliosis, thoracic region (principal); M41.35 Thoracogenic scoliosis, thoracolumbar region
CPT/HCPCS: 72081